=== PATIENT | female | born 1940 | race Caucasian/White ===

== ENCOUNTER → 2019-06-27 | Outpatient (CLI) | payer MEDICARE, BC ==
[~2019-06-27] MED LIST: BACTRIM DS TAB1 EACH PO; CYMBALTA30 MG PO; DELSYM30 MG/5 M1 PO; HYDROCODONE-AP1 EAC6 PO; LANOXIN 0.120.125 M1 PO; LASIX 40 MG TAB40 M2 PO; TOPROL XL50 MG
== END ==
LOC: M.ULTRA 06-20 13:00
DX: I73.9 Peripheral vascular disease, unspecified (principal)

== ENCOUNTER → 2020-10-08 | Outpatient (CLI) | payer MEDICARE, BC ==
[2020-10-08 11:18] LABS: HEMATOCRIT 41.9 % (37.0-47.0); HEMOGLOBIN 14.4 gm/dL (12.0-15.0); MCH 33.6 pg (26.0-34.0); MCHC 34.3 g/dL (28.0-37.0); MCV 98.1 fL (80.0-100.0); MPV 6.6 fl. (7.2-11.1); RBC 4.27 mil/uL (4.20-5.00); RDW-CV 13.8 % (10.5-14.5); WBC 8.4 thou/uL (4.0-11.0)
[2020-10-08 11:51] LABS: ALBUMIN 3.6 g/dL (3.4-5.0); CALCIUM 9.7 mg/dL (8.5-10.1); CREATININE 0.6 mg/dL (0.6-1.3); POTASSIUM 4.6 mmol/L (3.5-5.1); TOTAL BILIRUBIN 0.7 mg/dL (<0.1-1.0); TOTAL PROTEIN 7.1 g/dL (6.4-8.2)
== END ==
LOC: M.ULTRA 09:30
PROVIDERS: ATTEND Nurse Practitioner Family
DX: R10.11 Right upper quadrant pain (principal)

== ENCOUNTER 2020-11-15 08:58 | Observation (INO) | payer MEDICARE, BC ==
[~2020-11-15] VITALS: Ht 162.6 cm; Wt 58.2 kg
--- NOTE | ~2020-11-15 | PROC ---
[address] [address] PROCEDURE REPORT Name: LANA COTA V Room: [address] Kermit Hendricks#: [id number] Admission: 11/15/20 Attend Phys: Jl Albright MD Discharge: 11/16/20 Date of : 36 Report #: [id number] THIS REPORT FOR: cc: Lencho Valdes MD, Bruce D. MD [facility],Medical Records Staff ~ For GI report, please see the Provation report in Perceptive 7 content. By: [id number] Records Staff [facility]
[~2020-11-15 08:58] MED LIST changes: +CORLANOR7.5 MG PO; +DIGOXIN125 MCG PO; -LANOXIN 0.120.125 M1 PO; +TIZANIDINE HCL4 M1 PO; +TOPROL XL100 MG PO
[2020-11-15 09:40] LABS: HEMOGLOBIN 14.2 gm/dL (12.0-15.0); MCH 33.1 pg (26.0-34.0); MCHC 35.4 g/dL (28.0-37.0); MCV 93.3 fL (80.0-100.0); MPV 7.4 fl. (7.2-11.1); NUCLEATED RBCS 0 /100WBC; PLATELET COUNT* 271 thou/uL (150-400); RBC 4.28 mil/uL (4.20-5.00); RDW-CV 12.7 % (10.5-14.5); WBC 10.1 thou/uL (4.0-11.0)
[2020-11-15 09:54] LABS: CALCIUM 8.8 mg/dL (8.5-10.1); CREATININE 1.2 mg/dL (0.6-1.3)
[2020-11-15 09:55] LABS: POTASSIUM 2.7 mmol/L (3.5-5.1)
[2020-11-15 10:08] LABS: ABSOLUTE LYMPHOCYTES 2.1 thou/uL (0.8-5.3); ABSOLUTE MONOCYTES 0.3 thou/uL (0.0-1.2); ABSOLUTE NEUTROPHILS 7.7 thou/uL (1.6-8.1)
[2020-11-15 10:09] LABS: PLATELET ESTIMATE ADEQUATE
[2020-11-15 15:29] LABS: MAGNESIUM 1.1 mg/dL (1.8-2.4)
[2020-11-15 15:34] LABS: POTASSIUM 2.8 mmol/L (3.5-5.1)
[2020-11-15 18:12] VITALS: BP 102/44
[2020-11-15 19:30] VITALS: BP 80/35
[2020-11-15 22:09] VITALS: BP 133/35
[2020-11-16 00:52] VITALS: BP 142/71
[2020-11-16 02:06] LABS: ABSOLUTE BASOPHILS 0.1 thou/uL (0.0-0.2); ABSOLUTE EOSINOPHILS 0.1 thou/uL (0.0-0.7); ABSOLUTE LYMPHOCYTES 2.4 thou/uL (0.8-5.3); ABSOLUTE MONOCYTES 0.8 thou/uL (0.0-1.2); BASOPHILS 0.7 %; EOSINOPHILS 1.3 %; HEMATOCRIT 34.7 % (37.0-47.0); HEMOGLOBIN 12.4 gm/dL (12.0-15.0); LYMPHOCYTES 28.4 %; MCH 33.3 pg (26.0-34.0); MCHC 35.8 g/dL (28.0-37.0); MONOCYTES 9.9 %; MPV 7.4 fl. (7.2-11.1); NUCLEATED RBCS 0 /100WBC; PLATELET COUNT* 219 thou/uL (150-400); POLYS 59.7 %; RBC 3.74 mil/uL (4.20-5.00); RDW-CV 12.7 % (10.5-14.5); WBC 8.3 thou/uL (4.0-11.0)
[2020-11-16 02:10] LABS: CALCIUM 8.8 mg/dL (8.5-10.1); CREATININE 0.8 mg/dL (0.6-1.3); MAGNESIUM 1.4 mg/dL (1.8-2.4); POTASSIUM 3.6 mmol/L (3.5-5.1)
[2020-11-16 04:48] VITALS: BP 126/57
[2020-11-16 06:59] LABS: ALBUMIN 3.4 g/dL (3.4-5.0); CREATININE 0.9 mg/dL (0.6-1.3); MAGNESIUM 1.6 mg/dL (1.8-2.4); POTASSIUM 3.8 mmol/L (3.5-5.1); TOTAL BILIRUBIN 1.1 mg/dL (<0.1-1.0); TOTAL PROTEIN 6.4 g/dL (6.4-8.2)
[2020-11-16 08:30] VITALS: BP 150/60
[2020-11-16] MEDS ORDERED: LOPERAMIDE 2 MG2 M1 PO (15:37)
[2020-11-16] MEDS ORDERED: COLESTID5 GM PO (15:37)
[2020-11-16 15:45] VITALS: BP 150/60
[2020-11-16 15:54] VITALS: BP 150/60
== END 2020-11-16 16:40 | disposition home or self-care (01) ==
LOC: M.SUR 08:58 → M.TBA 15:55 → M.TBA-ER 16:20 → M.2W 17:55
PROVIDERS: Internal Medicine Gastroenterology; ADMIT Internal Medicine; ATTEND Internal Medicine
DX: K52.9 Noninfective gastroenteritis and colitis, unspecified (principal); E87.6 Hypokalemia; I50.9 Heart failure, unspecified; I42.8 Other cardiomyopathies; E43 Unspecified severe protein-calorie malnutrition; R64 Cachexia; I34.1 Nonrheumatic mitral (valve) prolapse; M19.019 Primary osteoarthritis, unspecified shoulder; E83.42 Hypomagnesemia; K44.9 Diaphragmatic hernia without obstruction or gangrene; K57.90 Diverticulosis of intestine, part unspecified, without perforation or abscess without bleeding; Z98.890 Other specified postprocedural states; Z90.710 Acquired absence of both cervix and uterus